=== PATIENT | male | born 1975 | race Caucasian/White ===

== ENCOUNTER 2021-05-07 17:15 | Emergency (ER) | payer OTHER, SELFPAY ==
[2021-05-07 17:45] VITALS: BP 145/87; PULSE 83; RESP 16; TEMP 36.9; O2SAT 99; BMI 32.5
--- NOTE | 2021-05-07 18:05 | CTR_ITS ---
PROCEDURE INFORMATION: Exam: CT Cervical Spine Without Contrast Exam date and time: 05/07/2021 6:05 PM Age: 45 years old Clinical indication: Injury or trauma; Other: Horse reared back and hit patient; Blunt trauma; Prior surgery; Surgery type: Esophageal, wisdom teeth TECHNIQUE: Imaging protocol: Computed tomography images of the cervical spine without contrast. Radiation optimization: All CT scans at this facility use at least one of these dose optimization techniques: automated exposure control; mA and/or kV adjustment per patient size (includes targeted exams where dose is matched to clinical indication); or iterative reconstruction. COMPARISON: CT facial bones wo con* [id number] 05/07/2021 6:15 PM RADIATION DOSE METRICS: Total DLP (mGy-cm): 812.68 FINDINGS: Bones/joints: No acute fracture. Normal alignment. Discs/Spinal canal/Neural foramina: No significant disc protrusion. No severe spinal canal stenosis. No significant neural foraminal narrowing. Lungs: Lung apices are normal. Soft tissues: Unremarkable. CT/CT cervical spin wo con* [id number] IMPRESSION: No acute findings. Radiation Dose CTDIVOL = (mGy): DLP = 812.68 (mGy-cm)
--- NOTE | 2021-05-07 18:05 | CTR_ITS ---
PROCEDURE INFORMATION: Exam: CT Head Without Contrast Exam date and time: 05/07/2021 6:05 PM Age: 45 years old Clinical indication: Injury or trauma; Other: Horse reared back and hit PT in face. +loc; Blunt trauma (contusions or hematomas) TECHNIQUE: Imaging protocol: Computed tomography of the head without contrast. Radiation optimization: All CT scans at this facility use at least one of these dose optimization techniques: automated exposure control; mA and/or kV adjustment per patient size (includes targeted exams where dose is matched to clinical indication); or iterative reconstruction. COMPARISON: No relevant prior studies available. RADIATION DOSE METRICS: Total DLP (mGy-cm): 994.33 FINDINGS: Brain: Normal. No hemorrhage. Unremarkable white matter. No mass effect. Cerebral ventricles: No ventriculomegaly. Paranasal sinuses: Visualized sinuses are unremarkable. No fluid levels. Mastoid air cells: Visualized mastoid air cells are well aerated. Bones/joints: Unremarkable. No acute fracture. Soft tissues: Unremarkable. CT/CT head wo con* [id number] IMPRESSION: No acute intracranial abnormality. Radiation Dose CTDIVOL = (mGy): DLP = 994.33 (mGy-cm)
--- NOTE | 2021-05-07 18:06 | CTR_ITS ---
PROCEDURE INFORMATION: Exam: CT Maxillofacial Without Contrast Exam date and time: 05/07/2021 6:06 PM Age: 45 years old Clinical indication: Injury or trauma; Other: Horse reared back and hit PT in face; Blunt trauma (contusions or hematomas); Forehead and jaw; Not specified; Injury details: Horse reared back and hit PT in the face. +loc. Jaw pain TECHNIQUE: Imaging protocol: Computed tomography images of the face without contrast. Radiation optimization: All CT scans at this facility use at least one of these dose optimization techniques: automated exposure control; mA and/or kV adjustment per patient size (includes targeted exams where dose is matched to clinical indication); or iterative reconstruction. COMPARISON: CT head wo con* [id number] 05/07/2021 6:13 PM RADIATION DOSE METRICS: Total DLP (mGy-cm): 784.18 FINDINGS: Orbital cavity: Orbits are normal. Globes are unremarkable. Bones/joints: No acute fracture. Paranasal sinuses: Normal. No air-fluid levels. Soft tissues: Unremarkable. CT/CT facial bones wo con* [id number] IMPRESSION: No acute findings. Radiation Dose CTDIVOL = (mGy): DLP = 784.18 (mGy-cm)
--- NOTE | 2021-05-07 18:19 | CTR_ITS ---
PROCEDURE INFORMATION: Exam: CT Chest With Contrast; Diagnostic Exam date and time: 05/07/2021 6:19 PM Age: 45 years old Clinical indication: Injury or trauma; Ruq; Blunt trauma (contusions or hematomas); Injury details: Horse reared back and hit PT in the face. +loc. Jaw pain. Pain in RT shoulder blade; Prior surgery; Surgery type: [place] teeth, esophageal, hernia, gb; Additional info: Fall TECHNIQUE: Imaging protocol: Diagnostic computed tomography of the chest with contrast. Radiation optimization: All CT scans at this facility use at least one of these dose optimization techniques: automated exposure control; mA and/or kV adjustment per patient size (includes targeted exams where dose is matched to clinical indication); or iterative reconstruction. Contrast material: OMNI 300; Contrast volume: 95 ml; Contrast route: INTRAVENOUS (IV); COMPARISON: No relevant prior studies available. RADIATION DOSE METRICS: Total DLP (mGy-cm): 2285.13 FINDINGS: Lungs: Unremarkable. No consolidation. No masses. Pleural spaces: Unremarkable. No pneumothorax. No pleural effusion. Heart: Unremarkable. No cardiomegaly. No pericardial effusion. Aorta: Unremarkable. No aortic aneurysm. Lymph nodes: Unremarkable. No enlarged lymph nodes. Bones/joints: Minimally displaced right lateral 4th rib fracture. Soft tissues: Unremarkable. IMPRESSION: Minimally displaced right lateral 4th rib fracture. Otherwise no acute traumatic intrathoracic findings. PROCEDURE INFORMATION: Exam: CT Abdomen And Pelvis With Contrast Exam date and time: 05/07/2021 6:19 PM Age: 45 years old Clinical indication: Injury or trauma; Ruq; Blunt trauma (contusions or hematomas); Injury details: Horse reared back and hit PT in the face. +loc. Jaw pain. Pain in RT shoulder blade; Prior surgery; Surgery type: [place] teeth, esophageal, hernia, gb; Additional info: Fall TECHNIQUE: Imaging protocol: Computed tomography of the abdomen and pelvis with contrast. Radiation optimization: All CT scans at this facility use at least one of these dose optimization techniques: automated exposure control; mA and/or kV adjustment per patient size (includes targeted exams where dose is matched to clinical indication); or iterative reconstruction. Contrast material: OMNI 300; Contrast volume: 95 ml; Contrast route: INTRAVENOUS (IV); COMPARISON: No relevant prior studies available. RADIATION DOSE METRICS: Total DLP (mGy-cm): 2285.13 FINDINGS: Liver: Normal. No mass. Gallbladder and bile ducts: Normal. No calcified stones. No ductal dilation. Pancreas: Normal. No ductal dilation. Spleen: Normal. No splenomegaly. Adrenal glands: Normal. No mass. Kidneys and ureters: Normal. No hydronephrosis. Stomach and bowel: Unremarkable. No obstruction. No mucosal thickening. Appendix: No evidence of appendicitis. Intraperitoneal space: Unremarkable. No free air. No significant fluid collection. Vasculature: Unremarkable. No abdominal aortic aneurysm. Lymph nodes: Unremarkable. No enlarged lymph nodes. Urinary bladder: Unremarkable as visualized. Reproductive: Unremarkable as visualized. Bones/joints: No acute fracture. Soft tissues: Unremarkable. CT/CT chest abd pel w con* IMPRESSION: No acute traumatic intra-abdominal findings. Radiation Dose CTDIVOL = (mGy): DLP = 2285.13~2285.13 (mGy-cm)
[2021-05-07] MEDS: iohexol 300 mg/mL 100 mL Btl IV (18:29)
--- NOTE | 2021-05-07 18:41 | W.ED.TRAUMA ---
HPI - Trauma General: Chief Complaint: Trauma Stated Complaint: Side pain, blow to face, Fell off horse Time Seen by Provider: 05/07/21 18:19 Source: patient Mode of arrival: ambulatory Limitations: no limitations History of Present Illness: HPI narrative: 45-year-old male states that he was riding a horse this evening get back up. States the horse and struck him in the head and knocked him off he states he fell on his back and his pain in his right scapula currently. States he is getting headache he did have a loss of consciousness has been pain no now is in that right upper back he rates it a 7 out of 10 patient was amatory after the event he denies any extremity or hip pain. Associated symptoms: Reports back pain and headache(s); Denies abdominal pain, chest pain, chills, dental pain, fever(s), nausea or vomiting Review of Systems Const: Denies: fever(s), chills, body aches or change in appetite Eyes: Denies: blurry vision or eye discomfort ENMT: Denies: throat pain or dental pain Card: Denies: chest pain Resp: Denies: dyspnea GI: Denies: abdominal pain, nausea, vomiting or diarrhea : Denies: dysuria Musc: Reports: back pain; Denies: neck pain Skin/Breast: Denies: rash Neuro: Reports: headache(s) Psych: Denies: depression Brad/Lymph: Denies: easy bruising All/Imm: Denies: urticaria Physical Exam Const: COMMON NORMALS: no acute distress, patient oriented x3 and healthy appearing HENMT: COMMON NORMALS: normocephalic HEAD & SCALP: normocephalic OTHER: Contusion over left forehead Eye: COMMON NORMALS: Equal, round and reactive pupils present and EOMs intact bilaterally PUPIL: Yes Equal, round and reactive pupils present Neck/C-Spine: COMMON NORMALS: full ROM and supple Chest: COMMONS NORMALS: normal inspection of the chest and normal palpation of entire chest wall Resp: COMMON NORMALS: normal respiratory effort, No retractions, No use of accessory muscles and clear to auscultation bilaterally AUSCULTATION: clear to auscultation bilaterally Cardio: COMMON NORMALS: regular rate, regular rhythm and No murmurs present (Cardio) RATE: regular rate RHYTHM: regular rhythm GI: COMMON NORMALS: Normal to inspection, nondistended, normoactive bowel sounds present, Soft to palpation, non-tender and no masses PALPATION: Yes Soft to palpation Back/Pelvis: OTHER: Tenderness over left scapula Extremity: COMMON NORMALS: normal to inspection and full ROM Neuro: COMMON NORMALS: patient oriented x3, moves all extremities and no focal motor deficits Psych: COMMON NORMALS: mental status grossly normal, Normal thought process present and cooperative THOUGHT PROCESS: Normal thought process present Skin: COMMON NORMALS: no rashes or lesions noted and no wounds GENERAL SKIN EXAM: no rashes or lesions noted Course Vital Signs: Vital signs: Vital Signs Temperature 98.4 F 05/07/21 17:45 Pulse Rate 96 05/07/21 19:11 Respiratory Rate 14 05/07/21 19:11 Blood Pressure 145/87 05/07/21 17:45 Pulse Oximetry 96 05/07/21 19:11 MDM - Trauma MDM Narrative: Medical decision making narrative: Patient presents here with rib fracture after being bucked off a horse he has no other findings on scans is well-appearing here. He is stable for discharge will place him on hydrocodone. He is to follow-up with PCP and return if worsening. Imaging Data^: CT Head: Radiologist's impression: [place] [address] CT Scan Report Signed Patient: Augusto Urena Unit #: [id number] : 1975 Age/Sex: 45 / M ADM Date: 05/07/21 Loc: ER Room/Bed: Attending Dr: Ordering Provider/Ordering MD: Jeff Chase MD Date of Service: 05/07/21 Procedure(s): CT head wo con* [id number] Accession Number(s): [id number] Report Number: [id number] PROCEDURE INFORMATION: Exam: CT Head Without Contrast Exam date and time: 05/07/2021 6:05 PM Age: 45 years old Clinical indication: Injury or trauma; Other: Horse reared back and hit PT in face. +loc; Blunt trauma (contusions or hematomas) TECHNIQUE: Imaging protocol: Computed tomography of the head without contrast. Radiation optimization: All CT scans at this facility use at least one of these dose optimization techniques: automated exposure control; mA and/or kV adjustment per patient size (includes targeted exams where dose is matched to clinical indication); or iterative reconstruction. COMPARISON: No relevant prior studies available. RADIATION DOSE METRICS: Total DLP (mGy-cm): 994.33 FINDINGS: Brain: Normal. No hemorrhage. Unremarkable white matter. No mass effect. Cerebral ventricles: No ventriculomegaly. Paranasal sinuses: Visualized sinuses are unremarkable. No fluid levels. Mastoid air cells: Visualized mastoid air cells are well aerated. Bones/joints: Unremarkable. No acute fracture. Soft tissues: Unremarkable. CT/CT head wo con* [id number] IMPRESSION: No acute intracranial abnormality. Radiation Dose CTDIVOL = (mGy): DLP = 994.33 (mGy-cm) Dictated By: Melvin Alfredo DO Signed By: Melvin Alfredo DO Signed Date/Time: 05/07/21 183 DD/ [address]: Radiologist's impression: [place] [address] CT Scan Report Signed Patient: Augusto Urena Unit #: [id number] : 1975 Age/Sex: 45 / M ADM Date: 05/07/21 Loc: ER Room/Bed: Attending Dr: Ordering Provider/Ordering MD: Jeff Chase MD Date of Service: 05/07/21 Procedure(s): CT facial bones wo con* [id number] Accession Number(s): [id number] Report Number: [id number] PROCEDURE INFORMATION: Exam: CT Maxillofacial Without Contrast Exam date and time: 05/07/2021 6:06 PM Age: 45 years old Clinical indication: Injury or trauma; Other: Horse reared back and hit PT in face; Blunt trauma (contusions or hematomas); Forehead and jaw; Not specified; Injury details: Horse reared back and hit PT in the face. +loc. Jaw pain TECHNIQUE: Imaging protocol: Computed tomography images of the face without contrast. Radiation optimization: All CT scans at this facility use at least one of these dose optimization techniques: automated exposure control; mA and/or kV adjustment per patient size (includes targeted exams where dose is matched to clinical indication); or iterative reconstruction. COMPARISON: CT head wo con* [id number] 05/07/2021 6:13 PM RADIATION DOSE METRICS: Total DLP (mGy-cm): 784.18 FINDINGS: Orbital cavity: Orbits are normal. Globes are unremarkable. Bones/joints: No acute fracture. Paranasal sinuses: Normal. No air-fluid levels. Soft tissues: Unremarkable. CT/CT facial bones wo con* [id number] IMPRESSION: No acute findings. Radiation Dose CTDIVOL = (mGy): DLP = 784.18 (mGy-cm) Dictated By: Melvin Alfredo DO Signed By: Melvin Alfredo DO Signed Date/Time: 05/07/21 1840 DD/ 05 ct c spine: Attestation: I personally reviewed and interpreted this imaging study as follows: Radiologist's impression: [address] [address] [address] Scan Report Signed Patient: Augusto Urena Unit #: [id number] : 1975 Age/Sex: 45 / M ADM Date: 05/07/21 Loc: ER Room/Bed: Attending Dr: Ordering Provider/Ordering MD: Jeff Chase MD Date of Service: 05/07/21 Procedure(s): CT cervical spin wo con* [id number] Accession Number(s): [id number] Report Number: [id number] PROCEDURE INFORMATION: Exam: CT Cervical Spine Without Contrast Exam date and time: 05/07/2021 6:05 PM Age: 45 years old Clinical indication: Injury or trauma; Other: Horse reared back and hit patient; Blunt trauma; Prior surgery; Surgery type: Esophageal, wisdom teeth TECHNIQUE: Imaging protocol: Computed tomography images of the cervical spine without contrast. Radiation optimization: All CT scans at this facility use at least one of these dose optimization techniques: automated exposure control; mA and/or kV adjustment per patient size (includes targeted exams where dose is matched to clinical indication); or iterative reconstruction. COMPARISON: CT facial bones wo con* [id number] 05/07/2021 6:15 PM RADIATION DOSE METRICS: Total DLP (mGy-cm): 812.68 FINDINGS: Bones/joints: No acute fracture. Normal alignment. Discs/Spinal canal/Neural foramina: No significant disc protrusion. No severe spinal canal stenosis. No significant neural foraminal narrowing. Lungs: Lung apices are normal. Soft tissues: Unremarkable. CT/CT cervical spin wo con* [id number] IMPRESSION: No acute findings. Radiation Dose CTDIVOL = (mGy): DLP = 812.68 (mGy-cm) Dictated By: Melvin Alfredo DO Signed By: Melvin Alfredo DO Signed Date/Time: 05/07/211835 DD/ 04 CT Chest: Radiologist's impression: . Lymph nodes: Unremarkable. No enlarged lymph nodes. Urinary bladder: Unremarkable as visualized. Reproductive: Unremarkable as visualized. Bones/joints: No acute fracture. [email or web address] [address] [address] Scan Report Signed Patient: Augusto Urena Unit #: [id number] : 1975 Age/Sex: 45 / M ADM Date: 05/07/21 Loc: ER Room/Bed: Attending Dr: Ordering Provider/Ordering MD: Jeff Chase MD Date of Service: 05/07/21 Procedure(s): CT chest abd pel w con* Accession Number(s): [id number] Report Number: [id number] PROCEDURE INFORMATION: Exam: CT Chest With Contrast; Diagnostic Exam date and time: 05/07/2021 6:19 PM Age: 45 years old Clinical indication: Injury or trauma; Ruq; Blunt trauma (contusions or hematomas); Injury details: Horse reared back and hit PT in the face. +loc. Jaw pain. Pain in RT shoulder blade; Prior surgery; Surgery type: [place] teeth, esophageal, hernia, gb; Additional info: Fall TECHNIQUE: Imaging protocol: Diagnostic computed tomography of the chest with contrast. Radiation optimization: All CT scans at this facility use at least one of these dose optimization techniques: automated exposure control; mA and/or kV adjustment per patient size (includes targeted exams where dose is matched to clinical indication); or iterative reconstruction. Contrast material: OMNI 300; Contrast volume: 95 ml; Contrast route: INTRAVENOUS (IV); COMPARISON: No relevant prior studies available. RADIATION DOSE METRICS: Total DLP (mGy-cm): 2285.13 FINDINGS: Lungs: Unremarkable. No consolidation. No masses. Pleural spaces: Unremarkable. No pneumothorax. No pleural effusion. Heart: Unremarkable. No cardiomegaly. No pericardial effusion. Aorta: Unremarkable. No aortic aneurysm. Lymph nodes: Unremarkable. No enlarged lymph nodes. Bones/joints: Minimally displaced right lateral 4th rib fracture. Soft tissues: Unremarkable. IMPRESSION: Minimally displaced right lateral 4th rib fracture. Otherwise no acute traumatic intrathoracic findings. PROCEDURE INFORMATION: Exam: CT Abdomen And Pelvis With Contrast Exam date and time: 05/07/2021 6:19 PM Age: 45 years old Clinical indication: Injury or trauma; Ruq; Blunt trauma (contusions or hematomas); Injury details: Horse reared back and hit PT in the face. +loc. Jaw pain. Pain in RT shoulder blade; Prior surgery; Surgery type: [place] teeth, esophageal, hernia, gb; Additional info: Fall TECHNIQUE: Imaging protocol: Computed tomography of the abdomen and pelvis with contrast. Radiation optimization: All CT scans at this facility use at least one of these dose optimization techniques: automated exposure control; mA and/or kV adjustment per patient size (includes targeted exams where dose is matched to clinical indication); or iterative reconstruction. Contrast material: OMNI 300; Contrast volume: 95 ml; Contrast route: INTRAVENOUS (IV); COMPARISON: No relevant prior studies available. RADIATION DOSE METRICS: Total DLP (mGy-cm): 2285.13 FINDINGS: Liver: Normal. No mass. Gallbladder and bile ducts: Normal. No calcified stones. No ductal dilation. Pancreas: Normal. No ductal dilation. Spleen: Normal. No splenomegaly. Adrenal glands: Normal. No mass. Kidneys and ureters: Normal. No hydronephrosis. Stomach and bowel: Unremarkable. No obstruction. No mucosal thickening. Appendix: No evidence of appendicitis. Intraperitoneal space: Unremarkable. No free air. No significant fluid collection. Vasculature: Unremarkable. No abdominal aortic aneurysm. Lymph nodes: Unremarkable. No enlarged lymph nodes. Urinary bladder: Unremarkable as visualized. Reproductive: Unremarkable as visualized. Bones/joints: No acute fracture. Soft tissues: Unremarkable. CT/CT chest abd pel w con* IMPRESSION: No acute traumatic intra-abdominal findings. Radiation Dose CTDIVOL = (mGy): DLP = 2285.13 2285.13 (mGy-cm) Dictated By: Melvin Alfredo DO Signed By: Melvin Alfredo DO Signed Date/Time: 05/07/211846 DD/ 18 Discharge Plan Discharge Patient Disposition: Home Clinical Impression: Closed rib fracture Qualifiers: Encounter type: initial encounter Rib fracture type: single rib Laterality: right Qualified Code(s): S22.31XA - Fracture of one rib, right side, initial encounter for closed fracture Condition: Stable Prescriptions: New hydrocodone-acetaminophen 5-325 mg tablet 1 tab PO Q6H PRN (Reason: pain) Qty: 14 RF: 0 Discharge Orders: Discharge ED (Routine); Ordered 05/07/21 Ordered By: Jeff Chase Discharge Diet: Advance as tolerated Discharge Activity: Resume usual activity Patient Instructions: Rib Fracture (ED), Opioid Safety Coding Level of Care Code ED Computer Peripheral Equipment Operator for Lenora Fwd Exam Comprehensive
[2021-05-07] MEDS: morphine 4 mg/mL SDV 1 mL IVP (19:01)
[2021-05-07] MEDS: ondansetron 2 mg/ML SDV 2 mL 4 MG IVP (19:01)
[2021-05-07 19:11] VITALS: PULSE 96; RESP 14; O2SAT 96
== END 2021-05-07 19:12 | disposition home or self-care (01) ==
PROVIDERS: Emergency Provider Emergency Medicine
DX: S22.31XA Fracture of one rib, right side, initial encounter for closed fracture (principal); W55.12XA Struck by horse, initial encounter
CPT/HCPCS: 70450; 70486; 71260; 72125; 74177; 96374; 96375; 99283; J2270; J2405; Q9967